=== PATIENT | male | born 1995 | race Two or more races ===

== ENCOUNTER 2018-10-07 13:24 | Emergency (ER) | payer OTHER ==
[~2018-10-07] VITALS: Ht 172.7 cm; Wt 83.0 kg
[2018-10-07] MEDS ORDERED: ZYPREXA15 MG ORAL (14:46)
[2018-10-07] MEDS ORDERED: ZOFRAN4 M3 ORAL (14:46)
[2018-10-07 14:52] VITALS: BP 117/78
--- NOTE | 2018-10-07 21:53 | Emergency Room Report ---
History of Present Illness General Chief Complaint: Nausea, Vomiting, and Diarrhea Source: Patient Present Illness HPI The patient is a 23-year-old male presenting for one week of nausea. He states that he has been taking Zyprexa but stopped 10 days prior and began using marijuana. He stopped using the marijuana yesterday and symptoms have improved. He denies other symptoms including F, chills, SOB, CP, rash, abd pain Allergies: Coded Allergies: No Known Allergies (Unverified , 10/07/18) Patient History Past Medical History: see triage record Pertinent Family History: none Reviewed Nursing Documentation: PMH: Agreed; PSxH: Agreed Nursing Documentation-PMH Past Medical History: No History, Except For Hx Cardiac Problems: No Hx Hypertension: No Hx Pacemaker: No Hx Asthma: Yes Hx COPD: No Hx Diabetes: No Hx Cancer: No Hx Gastrointestinal Problems: No Hx Dialysis: No History Of Psychiatric Problem: Yes - Schizophrenia, PTSD Hx Neurological Problems: No Hx Cerebrovascular Accident: No Hx Seizures: No Review of Systems All Other Systems: negative except mentioned in HPI Physical Exam Vital Signs Date Time Temp Pulse Resp B/P (MAP) Pulse Ox O2 Delivery O2 Flow Rate FiO2 10/07/18 13:42 98.2 66 14 128/85 97 Room Air Sp02 EP Interpretation: reviewed, normal General Appearance: no apparent distress, alert, GCS 15, non-toxic Head: normocephalic, atraumatic Respiratory: chest non-tender, lungs clear, normal breath sounds, speaking full sentences Cardiovascular #1: regular rate, rhythm, no edema Gastrointestinal: normal bowel sounds, non tender, soft, non-distended, no guarding, no rebound Genitourinary: normal inspection, no CVA tenderness Musculoskeletal: back normal, gait/station normal, normal range of motion, non- tender Neurologic: alert, oriented x3, responsive, motor strength/tone normal, sensory intact, speech normal Psychiatric: judgement/insight normal, memory normal, mood/affect normal, no suicidal/homicidal ideation Skin: normal color, no rash, warm/dry, well hydrated Medical Decision Making PA Attestation Dr. Chen is my supervising physician. Patient management was discussed with my supervising physician Diagnostic Impression: Primary Impression: Medication refill Additional Impression: Nausea ER Course The patient is a 23-year-old male presenting for one week of nausea after stopping zyprexa and starting marijuana DDx considered but not limited to: marijuana use, zyprexa withdrawal, gastroenteritis PE: afebrile. NAD PERRL Abd soft and non tender. Patient is given prescription for Zyprexa and told to stop using any drugs. He needs to follow-up with primary doctor and psych. He agrees. ER precautions given Last Vital Signs Date Time Temp Pulse Resp B/P (MAP) Pulse Ox O2 Delivery O2 Flow Rate FiO2 10/07/18 14:52 98.0 77 16 117/78 99 Room Air Status: improved Disposition: HOME, SELF-CARE Condition: Improved Scripts Olanzapine (ZYPREXA) 15 Mg Tablet 15 MG ORAL DAILY, #30 TAB 0 Refills Prov: TIMUR العلي 10/07/18 Ondansetron* (ZOFRAN*) 4 Mg Tablet 4 MG ORAL Q6H PRN for Nausea & Vomiting, #15 TAB Prov: TIMUR العلي 10/07/18 Referrals: NOT CHOSEN IPA/MD,REFERRING (PCP) Patient Instructions: Nausea, Adult Additional Instructions: I discussed my findings with the patient. All questions and concerns have been answered. Treatment and medication compliance have been addressed. I advised the patient that they need to follow up with PMD in 3-5 days. Return to ED if symptoms worsen, new symptoms arise, or if needed for any reason. Patient verbalized understanding of discharge instructions. TIMUR العلي Oct 07, 2018 21:53
== END 2018-10-07 14:52 | disposition home or self-care (01) ==
LOC: EMR 14:16
DX: R11.0 Nausea (principal); Z76.0 Encounter for issue of repeat prescription; F20.9 Schizophrenia, unspecified
CPT/HCPCS: 99283

== ENCOUNTER 2018-11-19 13:30 | Emergency (ER) | payer OTHER ==
[~2018-11-19] VITALS: Ht 172.7 cm; Wt 83.5 kg
[~2018-11-19 13:30] MED LIST: ZOFRAN4 M3 ORAL; ZYPREXA15 MG ORAL
[2018-11-19] MEDS ORDERED: CLARITIN-D 121 EAC1 ORAL (13:52)
[2018-11-19] MEDS ORDERED: AMOX TR-K CLV1 EAC2 ORAL (13:52)
--- NOTE | 2018-11-19 13:52 | Emergency Room Report ---
History of Present Illness General Chief Complaint: Earache Source: Patient, Medical Record Present Illness HPI 23-year-old male patient presents the ER complaining of left ear pain x2 weeks. States that the pain is moving to the left side of his face and teeth. Denies cough. Reports no ear drainage. Reports history of using Q-tips. Denies recent swimming. Also reports sinus pressure and pain during this time. Denies vomiting. Denies fever, chest pain, shortness of breath. States has been using [id number] Mucinex and other medications for relief of symptoms. Denies gum bleeding. Denies MIGUEL or neck pain. Allergies: Coded Allergies: No Known Allergies (Unverified , 10/07/18) Patient History Past Medical History: see triage record Reviewed Nursing Documentation: PMH: Agreed; PSxH: Agreed Nursing Documentation-PMH Hx Cardiac Problems: No Hx Hypertension: No Hx Pacemaker: No Hx Asthma: Yes Hx COPD: No Hx Diabetes: No Hx Cancer: No Hx Gastrointestinal Problems: No Hx Dialysis: No Hx Neurological Problems: No Hx Cerebrovascular Accident: No Hx Seizures: No Review of Systems All Other Systems: negative except mentioned in HPI Physical Exam Vital Signs Date Time Temp Pulse Resp B/P (MAP) Pulse Ox O2 Delivery O2 Flow Rate FiO2 11/19/18 13:36 98.4 109 15 113/76 95 Room Air Sp02 EP Interpretation: reviewed, normal General Appearance: well appearing, no apparent distress, alert, GCS 15, non- toxic Head: normocephalic, atraumatic, other - no frontal or maxillary sinus TTP Eyes: bilateral eye normal inspection, bilateral eye PERRL ENT: hearing grossly normal, normal pharynx, no angioedema, normal voice, TMs + canals normal - No erythema, no edema, no pain with ear pulling, TM intact, no effusion, no cerumen impaction, uvula midline, moist mucus membranes, other - Left upper molar tender to palpation, no erythema, no edema, no trismus Neck: full range of motion Respiratory: lungs clear, normal breath sounds, no rhonchi, no respiratory distress, no accessory muscle use, no wheezing, speaking full sentences Cardiovascular #1: regular rate, rhythm, no edema Musculoskeletal: back normal, digits/nails normal, gait/station normal, normal range of motion, non-tender Neurologic: alert, oriented x3, responsive, motor strength/tone normal, sensory intact Psychiatric: mood/affect normal Skin: no rash Lymphatic: no adenopathy Medical Decision Making PA Attestation Dr. Cao is my supervising Physician whom patient management has been discussed with. Diagnostic Impression: Primary Impression: Dental infection Additional Impression: Earache on left ER Course Pt. presents to the ED c/o ear and tooth pain. Ddx considered but are not limited to otitis media, otitis externa, cerumen impaction, mastoiditis, tooth infection, dental abscess, sinusitis, strep throat. Vital signs: are WNL, pt. is afebrile ER COURSE: Nontoxic appearing, speaking full sentences, no active draining, mild edema, no trismus or vision changes. No signs of abscess, no fluctuance, erythema or edema. follow-up with dentist. Will provide abx for infection to cover for possible infection. provided with contact information for dentists. F/u with PCP and dentist for further treatment. Low suspicion for mastoiditis, no swelling or erythema noted posterior to ear, no TTP. No erythema or edema, no effusion, low suspicion for otitis media. No pain with ear pulling. Low suspicion for otitis externa. Earache symptoms likely related to sinus congestion and tooth pain. Will provide patient with Claritin for relief of symptoms. Follow-up with primary care provider for further evaluation and treatment. ER precautions given. DISCHARGE: At this time pt is stable for d/c to home. Patient is resting comfortably, in no acute distress, nontoxic appearing, talking without difficulty. Patient to take medications as instructed Will provide with patient care instructions and any necessary prescriptions. Care plan and follow-up instructions provided. Patient instructed to follow-up with primary care provider in 3 - 5 days. Patient questions asked and answered. Patient reports understanding and agreement to treatment plan. ER precautions given. Patient instructed to return to ER immediately for any new or worsening of symptoms including but not limited to increasing SOB, persistent fever, chest pain, intractable vomiting. - Please note that this Emergency Department Report was dictated using [employer] audit clerk technology software, occasionally this can lead to erroneous entry secondary to interpretation by the dictation equipment. Last Vital Signs Date Time Temp Pulse Resp B/P (MAP) Pulse Ox O2 Delivery O2 Flow Rate FiO2 11/19/18 13:36 98.4 109 15 113/76 95 Room Air Disposition: HOME, SELF-CARE Condition: Stable Scripts Loratadine/Pseudoephedrine (CLARITIN-D 12 HOUR TABLET) 1 Each Tab.er.12h 1 TAB ORAL EVERY 12 HOURS, #24 TAB Prov: Huy Urena 11/19/18 Amoxicillin/Potassium Clav 875-125 Mg Tab* (AMOX TR-K CLV 875-125 MG TAB*) 1 Each Tablet 1 TAB ORAL EVERY 12 HOURS for 7 Days, #14 TAB Prov: Huy Urena 11/19/18 Patient Instructions: Dental Pain, [id number], Earache Additional Instructions: Followup with primary care provider in 3 -5 days. Do not use Q-tips. Discussed referral to ENT specialist. Follow-up with dentist in 1-2 days. Take Tylenol for pain symptoms. Take medications as directed. Patient questions asked and answered. ER precautions given, patient instructed to return to ER immediately for any new or worsening of symptoms. Huy Urena Nov 19, 2018 13:52
[2018-11-19 13:58] VITALS: BP 113/76
--- NOTE | 2018-11-19 14:00 | NUR ---
ED Nurse Note: pt. was cleared for d/c by ER MD ,he received d/c instructions with prescriptions, verbalized understanding and left ER with steady gait and all personal belongings, ID bend removed
--- NOTE | 2018-11-19 14:00 | NUR ---
ED Nurse Note:pt. came with left ear pain and dental pain
[2018-11-19 14:01] VITALS: BP 113/76
--- NOTE | 2018-11-19 14:02 | NUR ---
Chioma mora in EDM - 11/19/18 at 1403 by MORA ED Nurse Note: pt. was cleared for d/c by ER ,he received d/c instructions with prescriptions, verbalized understanding and left ER with steady gait and all personal belongings, ID bend removed
== END 2018-11-19 14:01 | disposition home or self-care (01) ==
LOC: EMR 13:45
DX: K04.7 Periapical abscess without sinus (principal); H92.02 Otalgia, left ear; J45.909 Unspecified asthma, uncomplicated; F17.200 Nicotine dependence, unspecified, uncomplicated
CPT/HCPCS: 99282

== ENCOUNTER 2020-01-30 22:23 | Emergency (ER) | payer SELFPAY ==
[~2020-01-30] VITALS: Ht 175.3 cm; Wt 77.1 kg
[~2020-01-30 22:23] MED LIST changes: +AMOX TR-K CLV1 EAC2 ORAL; +CLARITIN-D 121 EAC1 ORAL
--- NOTE | 2020-01-30 22:29 | Emergency Room Report ---
History of Present Illness General Source: Patient, EMS Present Illness HPI Patient is a 24-year-old male brought in by EMS after increased altered level consciousness. Patient had recent use of fentanyl as well as benzodiazepines and alcohol. He had been given 2 doses of intranasal Narcan by friend. Patient was noted to be somewhat slow to respond but was noted to have continued respirations. Prior history of substance abuse per EMS. Patient has no known allergies. Allergies: Coded Allergies: No Known Allergies (Unverified , 10/07/18) Patient History Past Medical History: see triage record Reviewed Nursing Documentation: PMH: Agreed; PSxH: Agreed Nursing Documentation-PMH Hx Cardiac Problems: No Hx Hypertension: No Hx Pacemaker: No Hx Asthma: Yes Hx COPD: No Hx Diabetes: No Hx Cancer: No Hx Gastrointestinal Problems: No Hx Dialysis: No Hx Neurological Problems: No Hx Cerebrovascular Accident: No Hx Seizures: No Review of Systems All Other Systems: negative except mentioned in HPI Physical Exam Sp02 EP Interpretation: reviewed, normal General Appearance: normal inspection, alert, non-toxic Head: atraumatic ENT: normal ENT inspection, hearing grossly normal, normal voice Neck: normal inspection, full range of motion, supple, no bony tend Respiratory: normal inspection, lungs clear, normal breath sounds, no respiratory distress, no retraction, no wheezing Cardiovascular #1: regular rate, rhythm, no edema Gastrointestinal: normal inspection, normal bowel sounds, non tender, soft, no guarding, no hernia Genitourinary: no CVA tenderness Musculoskeletal: normal inspection, back normal, normal range of motion Neurologic: alert, motor strength/tone normal, aircraft servicer III-XII nml as tested, oriented x3, responsive, speech normal, normal inspection Psychiatric: normal inspection, judgement/insight normal, mood/affect normal Medical Decision Making Diagnostic Impression: Primary Impression: Drug overdose ER Course Patient presented for possible overdose. Differential diagnosis include was not limited to polysubstance overdose, alcohol intoxication, rhabdomyolysis among others. Because of complexity of patient's case laboratory tests and imaging studies were ordered.Patient is laboratory testing was notable for negative blood alcohol.Patient was noted to have gradual improvement in his mental status. The time of discharge patient was awake alert and oriented. He was noted to be ambulatory without assistance. The patient is advised to follow up with primary care doctor in 1-2 days. Patient is advised to return if any worsening condition or if any changes in status that are concerning. This report is dictated with [employer] international operations manager software which may occasionally lead to discrepancies related to use of this software. Labs Test 01/30/20 22:30 White Blood Count 12.4 K/UL (4.8-10.8) Red Blood Count 5.61 M/UL (4.70-6.10) Hemoglobin 16.7 G/DL (14.2-18.0) Hematocrit 49.7 % (42.0-52.0) Mean Corpuscular Volume 89 FL (80-99) Mean Corpuscular Hemoglobin 29.7 PG (27.0-31.0) Mean Corpuscular Hemoglobin Concent 33.5 G/DL (32.0-36.0) Red Cell Distribution Width 11.6 % (11.6-14.8) Platelet Count 275 K/UL (150-450) Mean Platelet Volume 6.8 FL (6.5-10.1) Neutrophils (%) (Auto) 66.9 % (45.0-75.0) Lymphocytes (%) (Auto) 25.6 % (20.0-45.0) Monocytes (%) (Auto) 6.2 % (1.0-10.0) Eosinophils (%) (Auto) 0.2 % (0.0-3.0) Basophils (%) (Auto) 1.0 % (0.0-2.0) Sodium Level 139 MMOL/L (136-145) Potassium Level 3.8 MMOL/L (3.5-5.1) Chloride Level 100 MMOL/L (98-107) Carbon Dioxide Level 30 MMOL/L (21-32) Anion Gap 9 mmol/L (5-15) Blood Urea Nitrogen 13 mg/dL (7-18) Creatinine 1.2 MG/DL (0.55-1.30) Estimat Glomerular Filtration Rate > 60 mL/min (>60) Glucose Level 122 MG/DL (74-106) Calcium Level 9.7 MG/DL (8.5-10.1) Total Bilirubin 0.5 MG/DL (0.2-1.0) Aspartate Amino Transf (AST/SGOT) 36 U/L (15-37) Alanine Aminotransferase (ALT/SGPT) 84 U/L (12-78) Alkaline Phosphatase 54 U/L (46-116) Total Protein 8.3 G/DL (6.4-8.2) Albumin 4.9 G/DL (3.4-5.0) Globulin 3.4 g/dL Albumin/Globulin Ratio 1.4 (1.0-2.7) Salicylates Level 2.2 ug/mL (2.8-20) Acetaminophen Level < 2 MCG/ML (10-30) Serum Alcohol < 3 mg/dL Status: improved Disposition: HOME, SELF-CARE Condition: Stable Scripts Naloxone HCl (Narcan) 4 Mg [place] 4 MG NS ONCE for overdose, #1 SPRAY Prov: James Chen MD 01/31/20 James Chen MD Jan 30, 2020 22:29
--- NOTE | 2020-01-30 22:30 | NUR ---
ED Nurse Note: blood collected and sent to lab
[2020-01-30 22:33] VITALS: BP 115/61
--- NOTE | 2020-01-30 22:48 | NUR ---
ED Nurse Note: pt brought in by [facility] 68 c/o OD of unk amount of fentanyl, xanax, and alcohol. per ems, pt's friend administered narcan x2 dose. pt is aaox3 and drowsy. pt is nonambulatory. vss, nad. ermd at bedside
[2020-01-30 22:54] LABS: EOSINOPHILS % (AUTO) 0.2 % (0.0-3.0); HEMATOCRIT 49.7 % (42.0-52.0); HEMOGLOBIN 16.7 G/DL (14.2-18.0); LYMPHOCYTES % (AUTO) 25.6 % (20.0-45.0); MEAN CORPUSCULAR VOLUME 89 FL (80-99); MONOCYTES % (AUTO) 6.2 % (1.0-10.0); NEUTROPHILS % (AUTO) 66.9 % (45.0-75.0); PLATELET COUNT 275 K/UL (150-450); RED BLOOD COUNT 5.61 M/UL (4.70-6.10); RED CELL DISTRIBUTION WIDTH 11.6 % (11.6-14.8); WHITE BLOOD COUNT 12.4 K/UL (4.8-10.8)
[2020-01-30 22:57] LABS: ANION GAP 9 mmol/L (5-15); BLOOD UREA NITROGEN 13 mg/dL (7-18); CALCIUM 9.7 MG/DL (8.5-10.1); CARBON DIOXIDE 30 MMOL/L (21-32); CHLORIDE 100 MMOL/L (98-107); CREATININE 1.2 MG/DL (0.55-1.30); POTASSIUM 3.8 MMOL/L (3.5-5.1); SODIUM 139 MMOL/L (136-145)
[2020-01-30 23:02] LABS: ALANINE AMINOTRANSFERASE 84 U/L (12-78); ALBUMIN 4.9 G/DL (3.4-5.0); ALBUMIN/GLOBULIN RATIO 1.4 (1.0-2.7); ALKALINE PHOSPHATASE 54 U/L (46-116); ASPARTATE AMINO TRANSFERASE 36 U/L (15-37); BILIRUBIN,TOTAL 0.5 MG/DL (0.2-1.0)
[2020-01-31] MEDS ORDERED: NARCAN4 MG NS (01:29)
--- NOTE | 2020-01-31 02:00 | NUR ---
ED Nurse Note: pt is alert and awake. Requested sandwich and provided. vss, nad
[2020-01-31 02:23] VITALS: BP 122/77
[2020-01-31 02:25] VITALS: BP 122/77
--- NOTE | 2020-01-31 02:25 | NUR ---
ER DISCHARGE NOTE: Patient is cleared to be discharged per ERMD, pt is aox4, on room air, with stable vital signs. pt was given dc and prescription instructions, pt was able to verbalize understanding, pt id band and iv site removed without complications. pt is able to ambulate with steady gait. pt took all belongings.
== END 2020-01-31 02:25 | disposition home or self-care (01) ==
LOC: EDBD 22:23 → EMR 22:30
DX: T40.4X1A Poisoning by other synthetic narcotics, accidental (unintentional), initial encounter (principal); T42.4X1A Poisoning by benzodiazepines, accidental (unintentional), initial encounter; Y92.009 Unspecified place in unspecified non-institutional (private) residence as the place of occurrence of the external cause; J45.909 Unspecified asthma, uncomplicated
CPT/HCPCS: 36415; 80053; 85025; 99284; G0480; J7040